=== PATIENT | female | born 1935 | race Caucasian/White ===

== ENCOUNTER 2017-02-02 20:00 | Observation (INO) | payer OTHER ==
[~2017-02-02] VITALS: Ht 157.5 cm; Wt 72.7 kg
[2017-02-02 21:14] LABS: EOSINOPHIL (%) 1.5 % (0-5); EOSINOPHIL COUNT 0.1 K/uL (0-0.3); HEMATOCRIT 36.3 % (36.0-46.0); IMMATURE GRANULOCYTE (%) 0.2 % (0.0-0.7); INSTRUMENT ABS NEUTROPHIL CT 2.9 K/uL; LYMPHOCYTE COUNT 1.2 K/uL (1.0-2.8); MCH 31.1 PG (29.0-34.0); MCHC 32.2 G/DL (30.0-36.0); MCV 96.5 FL (83-99); MEAN PLAT.VOLUME 10.3 uM^3 (9.5-12.4); MONOCYTE (%) 10.1 % (3-12); MONOCYTE COUNT 0.5 K/uL (0-0.8); NEUTROPHIL (%) 61.6 % (45-76); NEUTROPHIL COUNT 2.9 K/uL (1.8-6.4); PLATELET COUNT 207 K/uL (156-360); RBC DIS.WIDTH-CV 12.9 % (11.8-14.6); RBC DIS.WIDTH-SD 45.7 % (39-53); RED BLOOD COUNT 3.76 M/uL (3.80-5.20); WHITE BLOOD COUNT 4.8 K/uL (4.1-10.2)
[2017-02-02 21:21] LABS: CHLORIDE 110 mEq/L (99-109); POTASSIUM 3.9 mEq/L (3.7-5.4); SODIUM 143 mEq/L (136-147)
[2017-02-02 21:23] LABS: GLUCOSE 106 mg/dL (70-99); INTER. NORMALIZED RATIO 1.1; PROTHROMBIN TIME 10.8 (9.2-11.2); PTT 26.9 (25-32)
[2017-02-02 21:24] LABS: ANION GAP 9 MEQ/L (2-14)
[2017-02-02 21:26] LABS: GFR ESTIMATE (CALCULATED) 57 mL/min/
[2017-02-02 21:27] LABS: UREA NITROGEN (BUN) 22 mg/dL (9-23)
[2017-02-02 21:34] LABS: TROP-I INTERPRETATION NEGATIVE; TROPONIN-I < 0.01 ng/mL (0.0-0.30)
[2017-02-02] MEDS ORDERED: XALATAN2.5 ML BOTH EYES (23:14)
[2017-02-02] MEDS ORDERED: COSOPT EYE DROPS5 ML BOTH EYES (23:15)
[2017-02-03 04:37] VITALS: BP 145/68
[2017-02-03 06:13] LABS: TROP-I INTERPRETATION NEGATIVE; TROPONIN-I < 0.01 ng/mL (0.0-0.30)
[2017-02-03 07:40] VITALS: BP 132/65
[2017-02-03 12:23] VITALS: BP 127/67
[2017-02-03 13:11] LABS: TROP-I INTERPRETATION NEGATIVE; TROPONIN-I < 0.01 ng/mL (0.0-0.30)
[2017-02-03 15:56] VITALS: BP 137/71
[2017-02-03 19:58] VITALS: BP 142/80
[2017-02-04 01:03] VITALS: BP 129/63
[2017-02-04 04:45] VITALS: BP 117/62
[2017-02-04 05:21] LABS: HEMATOCRIT 36.6 % (36.0-46.0); MCH 31.3 PG (29.0-34.0); MCV 97.9 FL (83-99); MEAN PLAT.VOLUME 10.5 uM^3 (9.5-12.4); PLATELET COUNT 218 K/uL (156-360); RBC DIS.WIDTH-CV 12.9 % (11.8-14.6); RBC DIS.WIDTH-SD 46.4 % (39-53); RED BLOOD COUNT 3.74 M/uL (3.80-5.20); WHITE BLOOD COUNT 5.4 K/uL (4.1-10.2)
[2017-02-04 06:04] LABS: ANION GAP 9 MEQ/L (2-14); CHLORIDE 107 MEQ/L (99-109); GFR ESTIMATE (CALCULATED) 57 mL/min/; GLUCOSE 91 mg/dL (70-99); POTASSIUM 4.2 MEQ/L (3.7-5.4); SAMPLE HEMOLYSIS CHECK 0; SAMPLE ICTERIC CHECK 0; SAMPLE LIPEMIA CHECK 0; SODIUM 140 MEQ/L (136-147); UREA NITROGEN (BUN) 19 mg/dL (9-23)
[2017-02-04 08:15] VITALS: BP 142/69
[2017-02-04 11:42] VITALS: BP 132/72
== END 2017-02-04 13:57 | disposition home or self-care (01) ==
LOC: EME → EDBD 20:00 → EDOF 23:57 → 5WEST 23:57
PROVIDERS: Emergency Medicine; Hospitalist
DX: R07.9 Chest pain, unspecified (principal); J98.11 Atelectasis; I25.10 Atherosclerotic heart disease of native coronary artery without angina pectoris; I70.0 Atherosclerosis of aorta; J84.10 Pulmonary fibrosis, unspecified
CPT/HCPCS: 71010; 71275; 80048; 84484; 85025; 85027; 85610; 85730; 93005; 99202; 99281; 99285; G0378; J1644; J1956; J3010

== ENCOUNTER 2017-04-25 17:53 | Observation (INO) | payer OTHER ==
[~2017-04-25] VITALS: Ht 154.9 cm; Wt 70.2 kg
[~2017-04-25 17:53] MED LIST: COSOPT EYE DROPS5 ML BOTH EYES; XALATAN2.5 ML BOTH EYES
[2017-04-25 19:16] LABS: HEMATOCRIT 38.5 % (36.0-46.0); MCH 31.6 PG (29.0-34.0); MCHC 32.5 G/DL (30.0-36.0); MCV 97.2 FL (83-99); MEAN PLAT.VOLUME 10.5 uM^3 (9.5-12.4); PLATELET COUNT 218 K/uL (156-360); RBC DIS.WIDTH-CV 12.8 % (11.8-14.6); RBC DIS.WIDTH-SD 46.2 % (39-53); RED BLOOD COUNT 3.96 M/uL (3.80-5.20); WHITE BLOOD COUNT 7.4 K/uL (4.1-10.2)
[2017-04-25 19:26] LABS: CHLORIDE 107 mEq/L (99-109); SODIUM 141 mEq/L (136-147)
[2017-04-25 19:28] LABS: GLUCOSE 108 mg/dL (70-99)
[2017-04-25 19:30] LABS: ANION GAP 8 MEQ/L (2-14); TOTAL BILIRUBIN 0.6 mg/dL (0.0-1.0)
[2017-04-25 19:32] LABS: ALKALINE PHOSPHATASE 54 IU/L (3-129); GFR ESTIMATE (CALCULATED) 51 mL/min/
[2017-04-25 19:32] LABS: ADD MIUA? NO; BILIRUBIN NEGATIVE; BLOOD NEGATIVE; COLOR YELLOW ((YELLOW)); GLUCOSE (STRIP) NEGATIVE; KETONES 20; LEUKOCYTES NEGATIVE; NITRITE NEGATIVE; PROTEIN (STRIP) NEGATIVE; SPECIFIC GRAVITY 1.026 (1.000-1.030); UROBILINOGEN 0.2 MG/DL (0.2-1.0)
[2017-04-25 19:33] LABS: UREA NITROGEN (BUN) 27 mg/dL (9-23)
[2017-04-25 19:35] LABS: LIPASE 85 U/L (1.0-51.0)
[2017-04-26 02:21] VITALS: BP 146/67
[2017-04-26 04:45] VITALS: BP 132/64
[2017-04-26 08:01] VITALS: BP 139/63
[2017-04-26 11:40] VITALS: BP 153/69
== END 2017-04-26 13:30 | disposition home or self-care (01) ==
LOC: EME 17:53 → EDOF 04-26 01:26 → ENRESERV 04-26 01:27 → 5WEST 04-26 02:14
PROVIDERS: Nurse Practitioner Family
DX: R10.31 Right lower quadrant pain (principal); R11.0 Nausea; R74.8 Abnormal levels of other serum enzymes
CPT/HCPCS: 74177; 80053; 81003; 83690; 85027; 99281; 99285; G0378; J1644; J7030; S0028